=== PATIENT | female | born 1990 | race Caucasian/White ===

== ENCOUNTER 2021-08-23 08:53 | Emergency (ER) | payer BC ==
[~2021-08-23] VITALS: Ht 149.9 cm; Wt 59.9 kg
[2021-08-23 08:57] VITALS: BP 152/94
--- NOTE | 2021-08-23 09:01 | NUR ---
PATIENT SENT TO LOBBY
--- NOTE | 2021-08-23 09:30 | NUR ---
NOVEL AND FLU SWABS COLLECTED AND WALKED TO LAB.
[2021-08-23] MEDS ORDERED: ROB PO (10:22)
[2021-08-23] MEDS ORDERED: ALBU0.0912 IH (10:22)
--- NOTE | 2021-08-23 10:30 | NUR ---
NO NURSING INTERVENTIONS PROVIDED
[2021-08-23 10:31] VITALS: BP 152/94
--- NOTE | 2021-08-23 10:31 | NUR ---
Patient discharged with v/s stable. Written and verbal after care instructions ABOUT UPPER RESPIRATORY INFECTION given and explained. Patient alert, oriented and verbalized understanding of instructions. Ambulatory with steady gait. All questions addressed prior to discharge. ID band removed. Patient advised to follow up with PMD. Rx of PROVENTIL HFA MDI AND ROBITUSSIN given. Patient educated on indication of medication including possible reaction and side effects. Opportunity to ask questions provided and answered.
== END 2021-08-23 10:31 | disposition home or self-care (01) ==
LOC: MED 08:53
DX: J06.9 Acute upper respiratory infection, unspecified (principal); Z20.822 Contact with and (suspected) exposure to COVID-19; J45.909 Unspecified asthma, uncomplicated; Z79.899 Other long term (current) drug therapy
CPT/HCPCS: 87804; 99283; U0003